=== PATIENT | male | born 1945 | race Caucasian/White ===

== ENCOUNTER 2017-05-10 12:25 | Outpatient (CLI) | payer MEDICARE, OTHER ==
[2017-05-10] MEDS ORDERED: METOPROLOL TARTRATE INJ 5 MG/5 ML AMPUL ONE (13:46)
[2017-05-10] MEDS ORDERED: IOHEXOL-350 100 ML VIAL IV ONE (14:02)
== END 2017-05-10 23:59 | disposition home or self-care (01) ==
LOC: CT 12:25
PROVIDERS: ATTEND Internal Medicine Cardiovascular Disease
DX: I10 Essential (primary) hypertension (principal); I42.9 Cardiomyopathy, unspecified
CPT/HCPCS: J3490; Z7610 ×2; Q9967